=== PATIENT | female | born 1965 | race Caucasian/White ===

== ENCOUNTER 2018-08-18 13:09 | Observation (INO) | payer OTHER ==
--- NOTE | 2018-08-18 13:03 | GHP ---
[f rep st] PREOP HISTORY AND PHYSICAL PREOP DIAGNOSIS: Breast hypertrophy. HISTORY OF PRESENTING COMPLAINT: The patient is a 53-year-old woman who has been bothered by excessive breast size for a number of years. She has had 3 children. Has had increase in breast size with the kids. Complains of neck, back, and shoulder pain. PAST MEDICAL HISTORY: She has history of Shlomo thyroiditis and is on Synthroid for that. PAST SURGICAL HISTORY: Partial hysterectomy, surgery for retained placenta and some form of oral surgery. ALLERGIES: None known. MEDICATIONS: Synthroid. SOCIAL HISTORY: She is a smoker who quit 7 weeks ago. She did have a couple of cigarettes, 3 total 2 weeks ago, but has stayed off them ever since. PHYSICAL EXAMINATION: GENERAL: Pleasant healthy-looking 53-year-old female. CARDIOVASCULAR: Heart sounds signs are normal. RESPIRATORY: Chest clear with good air entry. BREASTS: Obvious breast hypertrophy. IMPRESSION: Fit for procedure. PLAN: Bilateral breast reduction with the addition of a cosmetic modified abdominoplasty without muscle work and liposuction of the hips and flanks. /[id number]/MODL MTDD
[2018-08-18] MEDS ORDERED: LR 1,000 ML IV ONE (13:15)
[2018-08-18] MEDS ORDERED: BUPIVACAINE/EPI 0.25% 30 ML SDV ONE (13:38)
[2018-08-18] MEDS ORDERED: LIDO/EPI 1% **Not for Epidural 20 ML MDV ONE ×3 (13:38→17:11)
[2018-08-18] MEDS ORDERED: BUPIVACAINE/EPI 0.5% 30 ML SDV ONE (13:38)
[2018-08-18] MEDS ORDERED: MIDAZOLAM 2 MG/2 ML VIAL IVP ONE (15:14)
--- NOTE | 2018-08-18 15:14 | PDANEPAE ---
ANE Past Medical History - Cardiovascular History Hx Hypertension: No Hx Arrhythmias: No Hx Chest Pain: No Hx Coronary Artery / Peripheral Vascular Disease: No Hx CHF / Valvular Disease: No Hx Palpitations: No - Pulmonary History Hx COPD: No Hx Asthma/Reactive Airway Disease: No Hx Recent Upper Respiratory Infection: No Hx Oxygen in Use at Home: No Hx Sleep Apnea: No Sleep Apnea Screening Result - Last Documented: Negative - Neurologic History Hx Cerebrovascular Accident: No Hx Seizures: No Hx Dementia: No - Endocrine History Hx Diabetes: No Hypothyroid: Yes Hyperthyroid: No Obesity: yes, mild Endocrine History Comment: veronique's. hypothyroidism - Renal History Hx Renal Disorders: No Renal History Comment: occ leakage/ dribbling - Liver History Hx Hepatic Disorders: No - Neurological & Psychiatric Hx Hx Neurological and Psychiatric Disorders: No - Cancer History Hx Cancer: No - Congenital Disorder History Hx Congenital Disorders: No - GI History GERD: no Hx Gastrointestinal Disorders: No - Other Health History Other Health History: wears glasses- doesn't always wear. very dry skin - Chronic Pain History Chronic Pain: No - Surgical History Prior Surgeries: wisdom teeth. hysterectomy 15 yrs or so ago ANE Review of Systems Review of Systems: - Exercise capacity Exercise capacity: >=4 METS METS (RN): 4 METS ANE Patient History - Allergies Allergies/Adverse Reactions: No Known Allergies Allergy (Verified 08/14/18 12:58) - Home Medications Home Medications: B 12 Injection Monthly 08/14/18 [Last Taken 08/14/18] Herbals/Supplements -Info Only 08/14/18 [Last Taken 08/14/18] Levothyroxine 08/14/18 [Last Taken 08/17/18] Vit D Slow Release 08/14/18 [Last Taken 08/14/18] - NPO status NPO Since - Liquids (Date): 08/18/18 NPO Since - Liquids (Time): 11:45 NPO Since - Solids (Date): 08/18/18 NPO Since - Solids (Time): 06:00 - Anes Hx Anes Hx: no prior problems - Smoking Hx Smoking Status: Current some day smoker - Alcohol Use Alcohol Use: Occasionally - Family Anes Hx Family Anes Hx: neg - N/A Family Hx Anesthesia Complications: none ANE Labs/Vital Signs - Vital Signs Blood Pressure: 137/87 Heart Rate: 75 Respiratory Rate: 16 O2 Sat (%): 94 Height: 154.94 cm Weight: 78.471 kg ANE Physical Exam - Airway Neck exam: FROM Mallampati Score: Class 2 Mouth exam: normal dental/mouth exam - Pulmonary Pulmonary: no respiratory distress, no rales or rhonchi, clear to auscultation - Cardiovascular Cardiovascular: regular rate and rhythym, no murmur, rub, or gallop - ASA Status ASA Status: II ANE Anesthesia Plan Anesthesia Plan: general endotracheal anesthesia Total IV Anesthesia: No
[2018-08-18] MEDS ORDERED: ceFAZolin 2 GM/DEXTROSE 100 ML IV ONE (15:19)
[2018-08-18] MEDS ORDERED: PROPOFOL 200 MG/20 ML VIAL ONE (15:35)
[2018-08-18] MEDS ORDERED: ONDANSETRON 4 MG/2 ML VIAL ONE ×2 (15:35→21:28)
[2018-08-18] MEDS ORDERED: fentaNYL 100 MCG/2 ML INJ ONE ×4 (15:35→20:44)
[2018-08-18] MEDS ORDERED: ROCURONIUM 50 MG/5 ML VIAL ONE (15:36)
[2018-08-18] MEDS ORDERED: DEXAMETHASONE 4 MG/ML VIAL ONE ×2 (15:36→15:58)
[2018-08-18] MEDS ORDERED: LIDOCAINE 2% 5 ML SDV ONE (15:41)
[2018-08-18] MEDS ORDERED: KETOROLAC 30 MG/1 ML SDV ONE (15:57)
[2018-08-18] MEDS ORDERED: NALOXONE HCL 0.4 MG/ML INJ IVP PRN (18:31)
[2018-08-18] MEDS ORDERED: ONDANSETRON 4 MG/2 ML VIAL IVP PRN (18:31)
[2018-08-18] MEDS ORDERED: PROMETHAZINE HCL 25 MG/ML INJ IVP PRN (18:31)
[2018-08-18] MEDS ORDERED: PHENYLEPHRINE HCL 100 MCG/ML SYR IVP PRN (18:31)
[2018-08-18] MEDS ORDERED: LR 500 ML IV PRN (18:31)
[2018-08-18] MEDS ORDERED: oxyCODONE IR 5 MG TAB PO PRN (18:31)
[2018-08-18] MEDS ORDERED: ACETAMINOPHEN 500 MG TAB PO PRN (18:31)
[2018-08-18] MEDS ORDERED: HYDROCODONE/APAP 5/325 TAB PO PRN (18:31)
[2018-08-18] MEDS ORDERED: fentaNYL 100 MCG/2 ML INJ IVP PRN (18:31)
[2018-08-18] MEDS ORDERED: ePHEDrine SULFATE 25 MG/5 ML SYR ONE (18:41)
[2018-08-18] MEDS ORDERED: fentaNYL 250 MCG/5 ML INJ ONE (19:07)
--- NOTE | 2018-08-18 20:56 | POSTOPPROG ---
Post Op Note Date of Operation: 08/18/18 Surgeon: Celestine Escobar Anesthesiologist: Raghav Anesthesia: GET(General Endotracheal) Pre-op Diagnosis: Breast Hypertophy and Abdominal Laxity Post-op Diagnosis: Same Procedure: Breast reduction, modified abdominoplasty and liposuction Inf/Abcess present in the surg proc area at time of surgery?: No EBL: 100-500 Drains: Corbin Alba
--- NOTE | 2018-08-18 21:05 | GOP ---
[f rep st] OPERATIVE REPORT DATE OF OPERATION: 08/18/2018 SURGEON: Celestine Escobar MD PREOPERATIVE DIAGNOSIS: Breast hypertrophy. POSTOPERATIVE DIAGNOSIS: Breast hypertrophy. PROCEDURE PERFORMED: 1. Bilateral breast reduction. 2. Liposuction of flanks and modified abdominoplasty. FINDINGS: ESTIMATED BLOOD LOSS: 50 mL from the surgery and another couple of hundred milliliters in the liposu ction aspirate and drainage. DESCRIPTION OF PROCEDURE: With the patient lying supine, general anesthesia was established, and she was then turned into the prone position for the initial part of the procedure. Infiltration with 15 00 cc of saline containing 900 mg of lidocaine and 900 mcg of epinephrine was carried out. This was divided between the hips, the mid flanks, and the lateral breast areas. Liposuction was carried out with a 4 mm cannula removing 1300 cc of fluid from each side, which was 85% fat after separation. A total of 150 of fat was removed from each lateral breast area. The patient was then returned to the supine position. After appropriately prepping and draping, inci sions were made on the breasts according to preoperative markings for a modified vertical pattern fadi ast reduction with superior and medial pedicle technique. Pedicles were de-epithelialized. Tissue w as dissected at a level below the subcutaneous fat and just superficial to glandular tissue out later ally, inferiorly and superiorly. Intervening skin and glandular tissue were removed and pedicles wer e then trimmed down slightly. This resulted in removal of 252 g of tissue on the left side and 265 g of tissue on the right side. Bleeders were controlled with electrocautery. 10 mm flat Corbin-Prat t drains were placed bilaterally and closure was carried out with 3-0 Stratafix running subcuticular sutures. Attention was then turned to the abdomen where incisions were made according to preoperative markings across the lower abdomen. Dissection was taken down through subcutaneous fat to abdominal muscle fa scia. Dissection was then swept superiorly up to the ribcage bilaterally and the xiphoid in the midl ine. The umbilicus was preserved on its own stalk. The excess lower abdominal skin was measured and excised along with the underlying fat and most of the sub-Gisella fat from the upper abdomen. This r esulted in removal of 2600 g of tissue. There was a significant rectus diastasis that was present, b ut as had been discussed preoperatively with the patient in the interest of more rapid postoperative recovery, the muscles were not repaired. The abdominal skin fat flap was advanced down and sutured w ith mattress sutures of running 3-0 Stratafix to eliminate space and minimize tension. The umbi licus was brought out and sutured with 5-0 Prolene. The lower abdominal incision was repaired with 3 -0 Stratafix running subcuticular sutures. Dressings of Steri-Strips and gauze were applied to breas t incisions and lower abdominal incision. Xeroform gauze dressings were placed on the umbilical dres sing and all 3 drains. In addition, Xeroform and gauze dressings were placed on the stab incisions o n the back for which liposuction had been carried out. An abdominal binder was applied for postopera tive compression. The procedure was tolerated well. /[id number]/MODL
[2018-08-18] MEDS ORDERED: HYDROmorphONE/DILAUDID 1 MG/ML INJ ONE (21:54)
[2018-08-18] MEDS: HYDROmorphONE/DILAUDID 1 MG/ML INJ IVP PRN ×3 (21:59→23:07)
[2018-08-18] MEDS: OXYCODONE/APAP 5/325 TAB PO PRN (23:06)
[2018-08-19] MEDS: HYDROmorphONE/DILAUDID 1 MG/ML INJ IVP PRN ×2 (01:10→04:25)
[2018-08-19] MEDS: OXYCODONE/APAP 5/325 TAB PO PRN ×3 (04:25→16:03)
[2018-08-19 11:47] VITALS: BP 81/56
[2018-08-19] MEDS ORDERED: NS 1,000 ML IV ONE (12:30)
[2018-08-19 12:52] LABS: PLATELET COUNT 196 10^3/uL (150-400)
--- NOTE | 2018-08-19 14:50 | ASMTCMCOM ---
CM Note CM Note Notes: Chart review conducted by BRANDAN. Pt admitted for breast reduction. Has three children and is , living in [place]. No therapies ordered at this time. Pt will likely discharge independently. CM to follow. D/C Plan: Independent Date Signed: 08/19/2018 02:49 PM Electronically Signed By:Yocasta Best
--- NOTE | 2018-08-21 10:34 | POSTANESTH ---
Post Anesthetic Evaluation Cardiovascular Status: Normal, Stable Respiratory Status: Normal, Stable Level of Consciousness/Mental Status: Can Participate in Eval Pain Control: Adequate, Prn Tx Ordered Nausea/Vomiting Control: Adequate, Prn Tx Ordered Complications Possibly Related to Anesthesia: None Noted
--- NOTE | 2018-08-21 11:08 | GPROG ---
[f rep st] PROGRESS NOTE POST-ANESTHETIC EVALUATION NOTE After a successful extubation in the operatory suite, the patient was transferred to the PACU. Full report was given to the attending RN. The patient was left in a stable cardiorespiratory condition. The patient's pain control was adequate with p.r.n. treatment ordered. Overall, there were no anest hetic complications apparent. /[id number]/MODL
== END 2018-08-19 16:16 | disposition home or self-care (01) ==
LOC: FSGY 13:09 → F3N 20:33 → F1N 22:49
PROVIDERS: ADMIT Plastic Surgery; ATTEND Plastic Surgery
PROC: 0J073ZZ Alteration of Back Subcutaneous Tissue and Fascia, Percutaneous Approach (ICD-10-PCS; principal; 2018-08-18 15:15)
PROC: 0HBV0ZZ Excision of Bilateral Breast, Open Approach (ICD-10-PCS; principal; 2018-08-18 15:15)
PROC: 0J080ZZ Alteration of Abdomen Subcutaneous Tissue and Fascia, Open Approach (ICD-10-PCS; principal; 2018-08-18 15:15)
DX: N62 Hypertrophy of breast (principal); L57.4 Cutis laxa senilis; R53.1 Weakness; R40.0 Somnolence; T41.0X5A Adverse effect of inhaled anesthetics, initial encounter; E03.9 Hypothyroidism, unspecified; M54.2 Cervicalgia; M54.6 Pain in thoracic spine; M25.519 Pain in unspecified shoulder
CPT/HCPCS: 15830; 15877; 19318; G0378; J1100; J1170; J1885; J2250; J2405; J2704; J3010